=== PATIENT | female | born 1980 | race Two or more races ===

== ENCOUNTER 2025-10-01 09:56 | Emergency (ER) | payer OTHER ==
[~2025-10-01] VITALS: Ht 170.2 cm; Wt 127.0 kg
[2025-10-01] MEDS ORDERED: KETOROLAC TROMETHAMINE 60 MG VIAL IM ONE ×2 (13:45→14:20)
[2025-10-01] MEDS ORDERED: CEFTRIAXONE SODIUM 1,000 MG VIAL IM ONE (13:45)
[2025-10-01] MEDS ORDERED: LIDOCAINE HCL 1% 10ML VIAL ONE (14:19)
[2025-10-01] MEDS ORDERED: CEFTRIAXONE SODIUM 1,000 MG VIAL ONE (14:23)
[2025-10-01 15:07] LABS: BASO % 0.6 % (0.1-1.2); EOS # 0.13 (0.04-0.54); EOS % 1.0 % (0.7-7.0); LYMPH # 2.83 (1.18-3.74); LYMPH % 22.7 % (19.3-53.1); MEAN PLATELET VOLUME 10.00 fl (9.4-12.4); MONO # 0.95 (0.24-0.82); MONO % 7.6 % (4.7-12.5); NEUT # 8.44 (1.56-6.13); NEUT % 67.6 % (34.0-71.1); RED CELL DISTRIBUTION WIDTH 12.2 % (11.6-14.4)
[2025-10-01 15:13] LABS: ERYTHROCYTE SEDIMENTATION RATE 34 mm/hr (0-20)
[2025-10-01 15:43] LABS: ALT/SGPT 27 U/L (12-78); AST/SGOT 13 U/L (15-37); BILIRUBIN TOTAL 0.18 mg/dL (0.3-1.2); BUN CREA RATIO 22 (7.0-25.0); CREATININE SERUM 0.65 mg/dL (0.55-1.02); GFR 99.02; GLOBULINA 3.9 G/DL (2.4-3.5); GLUCOSE FASTING 88 mg/dL (65-100); OSMOLALITY SERUM 281 MOSM/KG (275-295)
[2025-10-01 15:45] LABS: HCG QUANTITATIVE < 1 mUI/mL (1-3)
== END 2025-10-01 18:24 | disposition home or self-care (01) ==
LOC: ER 09:57
PROVIDERS: General Practice
DX: I89.0 Lymphedema, not elsewhere classified (principal); L03.116 Cellulitis of left lower limb; M79.672 Pain in left foot; I10 Essential (primary) hypertension; E03.8 Other specified hypothyroidism; Z91.013 Allergy to seafood